=== PATIENT | male | born 1975 | race Caucasian/White ===

== ENCOUNTER 2017-05-24 01:47 | Emergency (ER) | payer OTHER ==
[2017-05-24 04:25] LABS: UA SPECIFIC GRAVITY 1.015 (1.005-1.035); microscopic required? YES; urine erythrocyte 2+ (NEGATIVE)
[2017-05-24 05:52] VITALS: BP 116/73
== END 2017-05-24 05:52 | disposition home or self-care (01) ==
LOC: ED 01:47
PROVIDERS: Emergency Medicine Emergency Medical Services
DX: N23 Unspecified renal colic (principal)
CPT/HCPCS: J1885; J7030

== ENCOUNTER 2020-06-13 08:12 | Emergency (ER) | payer OTHER, SELFPAY ==
[~2020-06-13] VITALS: Ht 172.7 cm; Wt 93.0 kg
[2020-06-13 08:22] VITALS: Ht 172.7 cm; Wt 93.0 kg
[2020-06-13 12:22] VITALS: BP 123/89
== END 2020-06-13 11:50 | disposition home or self-care (01) ==
LOC: ED 08:12
DX: U07.1 COVID-19 (principal); Z85.118 Personal history of other malignant neoplasm of bronchus and lung
CPT/HCPCS: J1885; U0003